=== PATIENT | female | born 1970 | race Two or more races ===

== ENCOUNTER 2018-10-10 10:31 | Emergency (ER) | payer SELFPAY ==
[~2018-10-10] VITALS: Ht 147.3 cm; Wt 102.0 kg
[2018-10-10] MEDS ORDERED: ACETAMINOPHEN 325MG TABLET PO ONE ×2 (11:00→21:45)
[2018-10-10] MEDS ORDERED: SODIUM CHLORIDE 0.9% 1000ML BAG (SEPSIS BOLUS) IV ONE (15:30)
[2018-10-10 15:54] LABS: CHLORIDE 107 mEq/L (98-107)
[2018-10-10 15:55] LABS: PROTHROMBIN TIME 10.6 sec (9.6-11.0)
[2018-10-10 16:01] LABS: BASOPHILS % 0.3 % (0.0-2.0); EOSINOPHILS % 0.1 % (0.0-5.0); HEMOGLOBIN. 15.1 g/dL (12.0-16.0); LYMPHOCYTES % 12.7 % (20.0-50.0); MEAN CORPUSCULAR HEMOGLOBIN 33.3 pg (28.0-32.0); MEAN CORPUSCULAR VOLUME 96.9 fL (81.0-99.0); MEAN PLATELET VOLUME 9.9 fl (7.4-10.4); MONOCYTES % 8.5 % (2.0-8.0); NEUTROPHILS % 78.4 % (40.0-76.0); PLATELET 222 x1000/uL (130-400); RED BLOOD CELL COUNT 4.54 mill/uL (4.2-5.4); RED CELL DISTRIBUTION WIDTH 13.1 % (11.6-14.6)
[2018-10-10 19:53] LABS: CLARITY URINE CLOUDY (CLEAR); COLOR URINE YELLOW (YELLOW); KETONES URINE TRACE (NEGATIVE); LEUKOCYTE ESTERASE URINE 3+ (NEGATIVE); NITRITE URINE POSITIVE (NEGATIVE); OCCULT BLOOD URINE 3+ (NEGATIVE); PROTEIN URINE TRACE (NEGATIVE); SPECIFIC GRAVITY URINE 1.013 (1.005-1.030)
[2018-10-10] MEDS ORDERED: CEFTRIAXONE 1 G PREMIX 50 ML IV ONE (20:45)
[2018-10-10 23:20] VITALS: BP 94/54
== END 2018-10-10 23:21 | disposition home or self-care (01) ==
LOC: ER 10:31
DX: N12 Tubulo-interstitial nephritis, not specified as acute or chronic (principal); Z90.49 Acquired absence of other specified parts of digestive tract; Z88.3 Allergy status to other anti-infective agents
CPT/HCPCS: 36415; 71045; 80053; 81003; 83605; 85025; 85610; 87040; 87070; 87077; 87086; 87186; 87430; 87804; 96365; 99284; J0696; J7030